=== PATIENT | female | born 1955 | race Caucasian/White ===

== ENCOUNTER 2017-10-08 11:28 | Emergency (ER) | payer OTHER ==
[~2017-10-08] VITALS: Ht 165.1 cm; Wt 68.0 kg
[2017-10-08 11:32] VITALS: BP 167/83
== END 2017-10-08 12:06 | disposition home or self-care (01) ==
LOC: ER 11:32
DX: M54.2 Cervicalgia (principal); J45.909 Unspecified asthma, uncomplicated; I10 Essential (primary) hypertension; M06.9 Rheumatoid arthritis, unspecified; K58.8 Other irritable bowel syndrome; Z98.890 Other specified postprocedural states; Z88.0 Allergy status to penicillin; Z88.2 Allergy status to sulfonamides; Z88.8 Allergy status to other drugs, medicaments and biological substances; V49.49XA Driver injured in collision with other motor vehicles in traffic accident, initial encounter; Y93.89 Activity, other specified; Y92.413 State road as the place of occurrence of the external cause; Y99.8 Other external cause status
CPT/HCPCS: 99283; A4606; Z7610

== ENCOUNTER 2017-12-21 14:24 | Emergency (ER) | payer OTHER ==
[~2017-12-21] VITALS: Ht 165.1 cm; Wt 72.6 kg
--- NOTE | 2017-12-21 14:33 | NUR ---
PT TO ED DT WORSENING MID BACK PAIN RADIATES TO LEFT LEG. NO TRAUMA. VAA
[2017-12-21] MEDS ORDERED: KETOROLAC TROMETHAMINE INJ 30 MG/ML VIAL ONE (15:10)
--- NOTE | 2017-12-21 15:23 | NUR ---
Patient discharged to home in stable condition. Written and verbal after care instructions given. Patient verbalizes understanding of instruction.
[2017-12-21 15:24] VITALS: BP 141/85
[2017-12-21] MEDS ORDERED: KETOROLAC TROMETHAMINE INJ 30 MG/ML VIAL IM ONE (15:30)
== END 2017-12-21 15:25 | disposition home or self-care (01) ==
LOC: ER 14:26
DX: M54.5 Low back pain (principal); I10 Essential (primary) hypertension; J45.909 Unspecified asthma, uncomplicated; G35 Multiple sclerosis; M06.9 Rheumatoid arthritis, unspecified; K58.9 Irritable bowel syndrome, unspecified; R56.9 Unspecified convulsions; M41.9 Scoliosis, unspecified; Z88.0 Allergy status to penicillin; Z88.2 Allergy status to sulfonamides; Z88.8 Allergy status to other drugs, medicaments and biological substances
CPT/HCPCS: 96372; 99283; A4606; J1885; Z7610

== ENCOUNTER 2018-06-03 15:17 | Emergency (ER) | payer OTHER ==
[~2018-06-03] VITALS: Ht 167.6 cm; Wt 77.1 kg
[2018-06-03 15:44] VITALS: BP 175/91
[2018-06-03] MEDS ORDERED: TRAMADOL HCL 50 MG TABLET ONE (15:56)
[2018-06-03] MEDS ORDERED: TRAMADOL HCL 50 MG TABLET PO ONE (16:00)
[2018-06-03 16:47] LABS: APPEARANCE,URINE SL CLOUDY (CLEAR); BILIRUBIN,URINE NEGATIVE (NEGATIVE); BLOOD, URINE 1+ Ery/uL (NEGATIVE); COLOR,URINE YELLOW (YELLOW); KETONES,URINE NEGATIVE (NEGATIVE); LEUKOCYTE ESTERASE ,URINE NEGATIVE (NEGATIVE); NITRITE, URINE NEGATIVE (NEGATIVE); PH,URINE 7.5 (5.0-8.0); PROTEIN,URINE 1+ mg/dl (NEGATIVE); UGLUCOSE NEGATIVE (NEGATIVE); UROBILINOGEN,URINE 0.2 EU/dL (0.2)
[2018-06-03 17:07] LABS: BACTERIA,URINE None seen /HPF (None Seen); SQUAMOUS EPITHELIAL CELL,UR Rare /HPF (None Seen); WBC,URINE 0-2 /HPF (0-3)
== END 2018-06-03 17:27 | disposition home or self-care (01) ==
LOC: ER 15:20
DX: N39.0 Urinary tract infection, site not specified (principal); G40.909 Epilepsy, unspecified, not intractable, without status epilepticus; I10 Essential (primary) hypertension; G35 Multiple sclerosis; G62.9 Polyneuropathy, unspecified; K58.9 Irritable bowel syndrome, unspecified; Z90.89 Acquired absence of other organs; Z98.890 Other specified postprocedural states; Z88.0 Allergy status to penicillin; Z88.2 Allergy status to sulfonamides; Z88.8 Allergy status to other drugs, medicaments and biological substances; Z60.2 Problems related to living alone
CPT/HCPCS: 81000-TC; 87086-TC; A4606; Z7610

== ENCOUNTER 2018-07-31 14:00 | Emergency (ER) | payer MEDICARE, MEDICAID ==
[~2018-07-31] VITALS: Ht 167.6 cm; Wt 79.4 kg
--- NOTE | 2018-07-31 14:20 | NUR ---
patient presented to the ER c/o fo flank pain. on room air, breathing evenly and unlabored. connected to the monitor. kept comfrotable. will continue to monitor accordingly.
[2018-07-31] MEDS ORDERED: ONDANSETRON HCL/PF 4 MG/2 ML VIAL ONE (14:27)
[2018-07-31] MEDS ORDERED: ONDANSETRON HCL/PF 4 MG/2 ML VIAL IM ONE (14:30)
[2018-07-31] MEDS ORDERED: oxyCODONE/APAP (5/325 MG) 1 UDTAB TABLET PO ONE (14:30)
[2018-07-31 14:31] LABS: APPEARANCE,URINE Clear (CLEAR); BILIRUBIN,URINE SMALL (NEGATIVE); BLOOD, URINE Negative Ery/uL (NEGATIVE); COLOR,URINE Orange (YELLOW); KETONES,URINE Trace (NEGATIVE); LEUKOCYTE ESTERASE ,URINE Negative (NEGATIVE); NITRITE, URINE Positive (NEGATIVE); PH,URINE 6.5 (5.0-8.0); PROTEIN,URINE >=300 mg/dl (NEGATIVE); UGLUCOSE 100 MG/DL mg/dL (NEGATIVE)
[2018-07-31 15:01] LABS: BACTERIA,URINE Few /HPF (None Seen); RBC,URINE NONE SEEN /HPF (0-2); WBC,URINE NONE SEEN /HPF (0-3)
[2018-07-31 15:02] LABS: SQUAMOUS EPITHELIAL CELL,UR Few /HPF (None Seen)
[2018-07-31] MEDS ORDERED: CEPHALEXIN MONOHYDRATE 500 MG CAPSULE PO ONE ×2 (15:45→16:00)
[2018-07-31 16:15] VITALS: BP 135/71
--- NOTE | 2018-07-31 16:18 | NUR ---
Patient discharged to home in stable condition. Written and verbal after care instructions given. Patient verbalizes understanding of instruction.
== END 2018-07-31 16:16 | disposition home or self-care (01) ==
LOC: ER 14:08
DX: N39.0 Urinary tract infection, site not specified (principal); G89.4 Chronic pain syndrome; R11.2 Nausea with vomiting, unspecified; G40.909 Epilepsy, unspecified, not intractable, without status epilepticus; I10 Essential (primary) hypertension; G35 Multiple sclerosis; G62.9 Polyneuropathy, unspecified; F12.10 Cannabis abuse, uncomplicated; F10.10 Alcohol abuse, uncomplicated; F41.9 Anxiety disorder, unspecified; Y90.9 Presence of alcohol in blood, level not specified; Z87.442 Personal history of urinary calculi; Z90.89 Acquired absence of other organs; Z90.722 Acquired absence of ovaries, bilateral; Z98.890 Other specified postprocedural states; Z60.2 Problems related to living alone; Z88.2 Allergy status to sulfonamides; Z88.0 Allergy status to penicillin; Z91.041 Radiographic dye allergy status; Z88.8 Allergy status to other drugs, medicaments and biological substances
CPT/HCPCS: 81001; 96372; 99283; A4606; J2405; 81000-TC

== ENCOUNTER 2018-08-09 12:16 | Inpatient (IN) | payer MEDICARE, MEDICAID ==
[~2018-08-09] VITALS: Ht 167.6 cm; Wt 82.6 kg
--- NOTE | 2018-08-09 12:30 | NUR ---
WORSENING CHEST PAIN, SOB X 2-3 MONTHS, STOPPED TAKING KEFLEX 1 1/2 WEEK FOR BLADDER INFECTION STATING ALLERGIC REACTION TO IT. STATES PAIN IS 8-9/10. RECENTLY STARTED MEDICATION FOR BLOOD PRESSURE. SKIN INTACT, NO ACUTE DISTRESS NOTED. FAMILY AT BEDSIDE. READY FOR EVAL.
--- NOTE | 2018-08-09 12:45 | NUR ---
DR MANNING AT BEDSIDE
--- NOTE | 2018-08-09 12:52 | NUR ---
XRAY AT BEDSIDE
[2018-08-09 12:54] LABS: BASOPHILS % (AUTO) 0.5 % (0.0-2.0); EOSINOPHILS % (AUTO) 0.7 % (0.0-6.0); HEMATOCRIT 38 % (33-45); HEMOGLOBIN 13.5 g/dL (11.5-14.8); LYMPHOCYTES # (AUTO) 0.7 /CMM (0.8-4.8); LYMPHOCYTES % (AUTO) 13.3 % (20.0-44.0); MEAN CORPUSCULAR HGB CONC 35 g/dl (31.0-36.0); MEAN CORPUSCULAR VOLUME 87 fL (82-100); MONOCYTES # (AUTO) 0.8 /CMM (0.1-1.30); MONOCYTES % (AUTO) 14.8 % (2.0-12.0); NEUTROPHILS # (AUTO) 3.6 /CMM (1.8-8.9); NEUTROPHILS % (AUTO) 70.7 % (43.0-81.0); PLATELET COUNT (AUTO) 331 /CMM (150-450); RED BLOOD CELL COUNT(AUTO) 4.34 MIL/uL (4.0-5.2); WHITE BLOOD COUNT (AUTO) 5.2 K/uL (4.3-11.0)
[2018-08-09 13:01] LABS: CALCIUM, SERUM 9.5 mg/dL (8.5-10.1); CARBON DIOXIDE 33 mmol/L (21-32); CHLORIDE 88 mmol/L (98-107); CREATININE 0.9 mg/dL (0.6-1.3); GLUCOSE 114 mg/dL (74-106); POTASSIUM 3.6 mmol/L (3.5-5.1); SODIUM SERUM 124 mmol/L (136-145); UREA NITROGEN, BLOOD 24 mg/dL (7-18)
[2018-08-09] MEDS ORDERED: HYDROCODONE/APAP 5/325MG 1 EACH TABLET ONE (13:21)
[2018-08-09] MEDS ORDERED: HYDROCODONE/APAP 5/325MG 1 EACH TABLET PO ONE (13:30)
--- NOTE | 2018-08-09 13:32 | NUR ---
URINE SENT TO STAT LAB
[2018-08-09 13:44] LABS: APPEARANCE,URINE Clear (CLEAR); BILIRUBIN,URINE Negative (NEGATIVE); BLOOD, URINE Negative Ery/uL (NEGATIVE); COLOR,URINE Yellow (YELLOW); KETONES,URINE Trace (NEGATIVE); LEUKOCYTE ESTERASE ,URINE Trace (NEGATIVE); NITRITE, URINE Negative (NEGATIVE); PROTEIN,URINE 30 mg/dl (NEGATIVE); UGLUCOSE Negative (NEGATIVE); UROBILINOGEN,URINE 0.2 EU/dL (0.2)
[2018-08-09 13:58] LABS: BACTERIA,URINE None seen /HPF (None Seen)
[2018-08-09 13:59] LABS: SQUAMOUS EPITHELIAL CELL,UR Moderate /HPF (None Seen); YEAST,URINE Moderate /HPF (None Seen)
--- NOTE | 2018-08-09 13:59 | NUR ---
PT RESTING COMFORTABLY IN BED. REQUESTING ZOFRAN FOR NAUSEA. WILL NOTIFY
[2018-08-09] MEDS ORDERED: IV NS 0.9% 1,000 ML BAG IV ONE (14:00)
[2018-08-09] MEDS ORDERED: ONDANSETRON HCL/PF 4 MG/2 ML VIAL ONE (14:30)
[2018-08-09] MEDS ORDERED: ONDANSETRON HCL/PF - ER 4 MG/2 ML VIAL IV ONE (14:30)
--- NOTE | 2018-08-09 14:31 | NUR ---
REPORT GIVEN TO ESAU SHINE IN 119-1 TELE Addendum: 08/09/18 at 1541 by SAMINA NOHEMY HIRSCH
--- NOTE | 2018-08-09 14:34 | NUR ---
PT TAKEN FOR CTA VIA EMILY
[2018-08-09] MEDS ORDERED: IOHEXOL-350 100 ML VIAL IV ONE (14:35)
[2018-08-09] MEDS ORDERED: IV NS 0.9% 250 ML IV ONE (14:35)
[2018-08-09] MEDS ORDERED: CT SWABBABLE VALVE TRANS SET 1 EA INFUS.SET MC ONE (14:35)
[2018-08-09 15:30] VITALS: BP 141/91
[2018-08-09] MEDS ORDERED: ONDANSETRON HCL/PF 4 MG/2 ML VIAL IVP PRN (15:30)
[2018-08-09] MEDS ORDERED: Z GUARD REMEDY 2 OZ OINT TP PRN (15:30)
[2018-08-09] MEDS ORDERED: MAG HYDROX/AL HYDROX/SIMETH 30 ML UDC PO PRN (15:30)
[2018-08-09] MEDS ORDERED: MAGNESIUM HYDROXIDE 30 ML UDC PO PRN (15:30)
[2018-08-09] MEDS ORDERED: ACETAMINOPHEN 325 MG TABLET PO PRN (15:30)
--- NOTE | 2018-08-09 15:30 | NUR ---
RN NOTES RECEIVED PT FROM ER IN ROOM 119-1, A/Ox4, ON RA, RESPIRATION EVEN AND UNLABORED, NO SOB NOTED, C/O CHEST PAIN 11/15, ON TELE , SR ,HR IN 80'S , R AC IV SITE G 18 CLEAN, DRY AND INTACT, NO SKIN ISSUE NOTED, SR UP X3, CALL LIGHT WITHIN EASY REACH, BED LOCKED AND IN LOWEST POSITION , CONTINUE TO MONITOR
--- NOTE | 2018-08-09 15:41 | NUR ---
PT TRANSFERRED TO FLOOR VIA SLIM Addendum: 08/09/18 at 1543 by [email or web address] IV BOLUS STILL INFUSING TO FLOOR
[2018-08-09] MEDS: IV NS 0.9% 1,000 ML IV PRN (16:44)
[2018-08-09] MEDS ORDERED: ASPIRIN 81 MG TAB.CHEW PO SCH (17:00)
[2018-08-09] MEDS: ATORVASTATIN 10 MG TABLET PO SCH (17:04)
[2018-08-09] MEDS: PANTOPRAZOLE 40 MG TABLET.DR PO SCH (17:04)
[2018-08-09] MEDS: METOPROLOL TARTRATE 50 MG TABLET PO SCH ×2 (17:06→23:16)
[2018-08-09 17:09] LABS: THYROID STIMULATING HORMONE 1.044 uIU/mL (0.358-3.74)
[2018-08-09] MEDS: MORPHINE SULFATE INJ 2 MG/ML DISP.SYRIN IV PRN ×2 (18:03→21:52)
--- NOTE | 2018-08-09 18:17 | NUR ---
RN NOTES PT STABLE , NS AT 125CC/HR RUNNING VIA R AC IV SITE , WILL ENDORSE TO LINK WIRE FABRIC MACHINE TENDER NURSE FOR CONTINUITY OF CARE.
[2018-08-09 20:00] VITALS: BP 161/82
--- NOTE | 2018-08-09 20:20 | NUR ---
SUPERVISOR GRAPHITE INITIAL NOTES Patient in bed, awaked. Stable oxygen saturation on RA, sinus rhythm on the tele monitor. C/O back, left arm pain, PRN norco given, will reassess. Maintained safety, will cont to lesli.
[2018-08-09] MEDS: HYDROCODONE/APAP 5/325MG 1 EACH TABLET PO PRN (20:33)
[2018-08-09] MEDS: ZOLPIDEM TARTRATE 5 MG TABLET PO PRN (23:16)
[2018-08-10] VITALS (7 sets, daily range): BP systolic 104–161; BP diastolic 48–78
[2018-08-10] MEDS: HYDROCODONE/APAP 5/325MG 1 EACH TABLET PO PRN ×4 (01:42→21:36)
[2018-08-10] MEDS: IV NS 0.9% 1,000 ML IV PRN ×3 (01:44→22:21)
[2018-08-10] MEDS: METOPROLOL TARTRATE 50 MG TABLET PO SCH ×3 (05:00→17:00)
--- NOTE | 2018-08-10 06:21 | NUR ---
BIAS CUTTING MACHINE OPERATOR VERTICAL CLOSING NOTES Patient in bed, ambulates independently. Stable oxygen saturation on RA, denies shortness of breath. Sinus rhythm on the tele monitor. NPO except meds started MN. IVF infusing, maintained at 125ml/hr. Patient is scheduled for NM myocardial test today, consent signed, patient consented procedure. Maintained safety, will endorse to oncoming RN.
[2018-08-10 06:32] LABS: BASOPHILS % (AUTO) 0.9 % (0.0-2.0); EOSINOPHILS % (AUTO) 2.6 % (0.0-6.0); HEMATOCRIT 33 % (33-45); HEMOGLOBIN 11.7 g/dL (11.5-14.8); LYMPHOCYTES # (AUTO) 1.3 /CMM (0.8-4.8); LYMPHOCYTES % (AUTO) 34.8 % (20.0-44.0); MEAN CORPUSCULAR HGB CONC 35 g/dl (31.0-36.0); MEAN CORPUSCULAR VOLUME 88 fL (82-100); MONOCYTES # (AUTO) 0.6 /CMM (0.1-1.30); MONOCYTES % (AUTO) 17.2 % (2.0-12.0); NEUTROPHILS # (AUTO) 1.6 /CMM (1.8-8.9); NEUTROPHILS % (AUTO) 44.5 % (43.0-81.0); PLATELET COUNT (AUTO) 228 /CMM (150-450); RED BLOOD CELL COUNT(AUTO) 3.77 MIL/uL (4.0-5.2); WHITE BLOOD COUNT (AUTO) 3.7 K/uL (4.3-11.0)
[2018-08-10 07:05] LABS: ALANINE AMINOTRANSFERASE 20 U/L (12-78); ALBUMIN 3.3 g/dL (3.4-5.0); ALKALINE PHOSPHATASE 76 U/L (46-116); ASPARTATE AMINOTRANSFERASE 15 U/L (15-37); BILIRUBIN,TOTAL 0.3 mg/dL (0.2-1.0); CALCIUM, SERUM 8.6 mg/dL (8.5-10.1); CARBON DIOXIDE 26 mmol/L (21-32); CHLORIDE 98 mmol/L (98-107); CREATININE 0.8 mg/dL (0.6-1.3); GLUCOSE 93 mg/dL (74-106); MAGNESIUM 1.8 mg/dL (1.8-2.4); POTASSIUM 3.4 mmol/L (3.5-5.1); SODIUM SERUM 132 mmol/L (136-145); TOTAL PROTEIN, SERUM 6.1 g/dL (6.4-8.2); UREA NITROGEN, BLOOD 14 mg/dL (7-18)
--- NOTE | 2018-08-10 07:05 | NUR ---
LOG TURNER OPENING NOTES RECEIVED PT LYING ON BED.ALERT/ORIENTED X3.ON TELE HR IS 60'S WITH SR.NO SOB AND ACUTE DISTRESS NOTED.ON ROOM AIR,TOLERATING WELL.IV LINE IS ON RIGHT AC G18.SITE IS CLEAN DRY AND INTACT.NO INFILTRATION NOTED.CAN AMBULATE WITHOUT ASSISTANCE,TOLERATING WELL.ON NPOI FOR CARDIAC STRESS TEST.SAFETY IS MAINTAINED AT ALL TIMES.BED IS IN LOW POSITION AND LOCKED.CALL LIGHT IS WITHIN REACH.WILL CONTINUE TO MONITOR THE PT.
[2018-08-10 07:31] LABS: CHOLESTEROL 223 mg/dL (<200); HDL CHOLESTEROL 96 mg/dL (40-60); LDL 107 mg/dL (0-99); TRIGLYCERIDES 64 mg/dL (30-150)
[2018-08-10] MEDS ORDERED: REGADENOSON 0.4 MG/5 ML DISP.SYRIN IVP ONE (08:00)
--- NOTE | 2018-08-10 08:00 | NUR ---
CLINICAL PHARMACY TECHNICIAN NOTES LUIS FERNANDO,NUCLEAR MEDICINE NURSE CAME AND SEEN THE PT TO INJECT IV NUCLEAR MEDICINE FOR CARDIAC REST AND PER HIM AFTER 1 HR ,SHOULD D/C NPO STATUS AND RESUME CARDIAC DIET.NEW ORDERS NOTED AND CARRIED OUT.
--- NOTE | 2018-08-10 08:30 | NUR ---
WIRELESS STORE MANAGER NOTES PT WENT TO DO STRESS TEST.VITAL SIGNS ARE CHECKED.NO COMPLICATIONS NOTED.
[2018-08-10 09:28] LABS: EOSINOPHILS % (MANUAL) 2 % (0-4); LYMPHOCYTES % (MANUAL) 29 % (16-48); MONOCYTES % (MANUAL) 6 % (0-11.0); NEUTROPHILS % (MANUAL) 63 (42-76)
--- NOTE | 2018-08-10 09:30 | NUR ---
BANQUET SUPERVISOR NOTES PT CAME BACK FROM STRESS TEST.NO COMPLICATIONS NOTED.
[2018-08-10] MEDS: ASPIRIN EC 81 MG TABLET.DR PO SCH (09:34)
[2018-08-10] MEDS: PANTOPRAZOLE 40 MG TABLET.DR PO SCH (09:35)
[2018-08-10] MEDS: ATORVASTATIN 10 MG TABLET PO SCH (09:35)
[2018-08-10] MEDS ORDERED: POTASSIUM CHLORIDE 20 MEQ TAB.PRT.SR PO ONE (10:00)
--- NOTE | 2018-08-10 10:40 | NUR ---
CLINICAL TRANSFORMATION SPECIALIST NOTES PT WENT TO HAVE SECOND PHASE OF STRESS TEST.
--- NOTE | 2018-08-10 11:20 | NUR ---
STAFF ATTORNEY NOTES PT CAME BACK FROM STRESS TEST.NO COMPLICATIONS NOTED.C/O GENERALIZED PAIN
[2018-08-10] MEDS: VALSARTAN 80 MG TABLET PO SCH (11:32)
[2018-08-10] MEDS: MORPHINE SULFATE INJ 2 MG/ML DISP.SYRIN IV PRN ×4 (12:13→18:55)
[2018-08-10] MEDS: DICYCLOMINE HCL 10 MG CAPSULE PO SCH ×3 (12:51→21:36)
--- NOTE | 2018-08-10 18:55 | NUR ---
MS RN CLOSING NOTES PT IS LYING ON BED.ALERT/ORIENTED X2 WITH FORGETFUL.ON ROOM AIR,TOLERATING WELL.CAN AMBULATE WITH MINIMAL ASSISTANCE.STRESS TEST HAS DONE AND IT IS NORMAL.MD ORDERED TO HAVE CT HEAD WO CONTRAST.IV LINE IS IN PLACE WITH IV FLUIDS.NO SIGNIFICANT CHANGES NOTED IN OUR SHIFT.ALL THE DUE MEDS ARE GIVEN.ENDORSED TO MORTGAGE OR LOAN UNDERWRITER RN FOR RL AND TO FOLLOW UP THE HOME MEDS LIST.
--- NOTE | 2018-08-10 19:15 | NUR ---
RN M/S NOTE PATIENT IS AOX2-3, SPEECH CLEAR, ABLE TO MAKE NEEDS KNOWN, DENIES ANY PAIN, NO S/SX OF CARDIAC OR RESPIRATORY DISTRESS, SKIN IS CLEAN AND DRY, RAC #18G PATENT FLUSHING WELL, WITH NS AT 125ML/HR, SAFETY MAINTAINED AT ALL TIMES, WILL CONTINUE TO MONITOR FOR ANY CHANGES IN CONDITION.
[2018-08-10 21:01] LABS: OSMOLALITY,URINE 425 mOS/kg (340-1090)
[2018-08-10 21:07] LABS: URINE SODIUM, RANDOM 67 mmol/l (40-220)
[2018-08-10] MEDS: NITROGLYCERIN 0.4 MG/TAB BOTTLE SL PRN (21:37)
[2018-08-10] MEDS: ZOLPIDEM TARTRATE 5 MG TABLET PO PRN (22:21)
[2018-08-11] MEDS: METOPROLOL TARTRATE 50 MG TABLET PO SCH ×3 (00:13→11:23)
[2018-08-11 04:00] VITALS: BP_SYST 140; BP_SYST 151; BP_DIAS 51; BP_DIAS 74
[2018-08-11] MEDS: IV NS 0.9% 1,000 ML IV PRN (06:29)
--- NOTE | 2018-08-11 07:00 | NUR ---
MS RN OPENING NOTES RECEIVED PT IN BED, A/OX3. PT ABLE TO AMBULATE TO BR. STEADY GAIT. CLEAR LUNG SOUNDS/ACTIVE BS NOTED. ON ROOM AIR. TOLERATING WELL. O2 SAT WNL. R HAND #22G PATENT/FLUSHED. IV FLUIDS INFUSING. NO S/SX OF INFILTRATION NOTED. PT C/O CHEST PAIN LOCALIZED 01/15. PER PT "BREATHING MAKES IT HURT". BED ALARM ON, CALL LIGHT IN REACH. WILL CONT TO MONITOR.
[2018-08-11 07:19] LABS: CALCIUM, SERUM 8.7 mg/dL (8.5-10.1); CREATININE 0.7 mg/dL (0.6-1.3); POTASSIUM 3.9 mmol/L (3.5-5.1)
[2018-08-11 08:00] VITALS: BP 148/73
[2018-08-11 08:23] LABS: URIC ACID 2.5 mg/dL (2.6-7.2)
[2018-08-11] MEDS: NITROGLYCERIN 0.4 MG/TAB BOTTLE SL PRN ×2 (09:16→12:06)
[2018-08-11] MEDS: HYDROCODONE/APAP 5/325MG 1 EACH TABLET PO PRN (09:17)
[2018-08-11] MEDS: PANTOPRAZOLE 40 MG TABLET.DR PO SCH (09:17)
[2018-08-11] MEDS: DICYCLOMINE HCL 10 MG CAPSULE PO SCH ×2 (09:17→12:07)
[2018-08-11] MEDS: ATORVASTATIN 10 MG TABLET PO SCH (09:17)
[2018-08-11] MEDS: ASPIRIN EC 81 MG TABLET.DR PO SCH (09:18)
[2018-08-11] MEDS: VALSARTAN 80 MG TABLET PO SCH (09:18)
[2018-08-11] MEDS ORDERED: SIMETHICONE 80 MG TAB.CHEW PO PRN (10:00)
[2018-08-11] MEDS ORDERED: LIDOCAINE VISCOUS 2% UD 15 ML UDC MM SCH (10:00)
--- NOTE | 2018-08-11 10:46 | NUR ---
MS RN NOTES PADMINI GASKET NOTCHER AND GODFREY GASKET NOTCHER ROUNDING WITH PT.
[2018-08-11 12:06] VITALS: BP 144/85
[2018-08-11] MEDS: MORPHINE SULFATE INJ 2 MG/ML DISP.SYRIN IV PRN (13:52)
--- NOTE | 2018-08-11 15:36 | NUR ---
MS MILITARY TECHNICIAN NOTES PT LEFT WITH SON, ELYSIA, IN PRIVATE CAR. DISCHARGE INSTRUCTIONS GIVEN TO PATIENT. IV REMOVED. BELONGINGS SENT WITH PT. INFLUENZA VACCINE GIVEN. PT HAD PSYCH CONSULT PENDING; PT INSISTED ON LEAVING AND GOING TO OWN PSYCH DOCTOR OUTSIDE OF HOSPITAL. SON AGREED THAT PT SHOULD LEAVE HOSPITAL AND GO TO PSYCH DR AFTER. ALL NEEDS ATTENDED TO.
== END 2018-08-11 15:36 | disposition home or self-care (01) | DRG 205 ==
LOC: ER 12:21 → TELE1 14:34 → MEDSG1 08-10 11:50
PROVIDERS: ATTEND Nurse Practitioner Acute Care
DX: M94.0 Chondrocostal junction syndrome [Tietze] (principal); G92 Toxic encephalopathy; E87.1 Hypo-osmolality and hyponatremia; G62.9 Polyneuropathy, unspecified; G40.909 Epilepsy, unspecified, not intractable, without status epilepticus; G35 Multiple sclerosis; M06.9 Rheumatoid arthritis, unspecified; I10 Essential (primary) hypertension; J45.909 Unspecified asthma, uncomplicated; M41.9 Scoliosis, unspecified; K58.0 Irritable bowel syndrome with diarrhea; K44.9 Diaphragmatic hernia without obstruction or gangrene; R13.10 Dysphagia, unspecified; Z87.442 Personal history of urinary calculi; E87.6 Hypokalemia; K21.9 Gastro-esophageal reflux disease without esophagitis; M79.7 Fibromyalgia; N20.0 Calculus of kidney
CPT/HCPCS: 36415; 71045-TC; 80048-TC; 80053-TC; 80061-TC; 81000-TC; 83735-TC; 83935-TC; 84100-TC; 84300-TC; 84439-TC; 84443-TC; 84484-TC; 84550-TC; 85025-TC; 85378-TC; 87081-TC; 87086-TC; 92521; 93307-TC; A9502; G0378; J2270; J2405; J2785; J3490; J7030; J7050; Q2036; Q9967